=== PATIENT | female | born 1980 | race Caucasian/White ===

== ENCOUNTER 2018-08-20 13:59 | Emergency (ER) | payer MEDICAID ==
--- NOTE | 2018-08-20 14:08 | ER Report ---
History and Physical Time Seen By MD: 14:08 HPI/ROS CHIEF COMPLAINT: Seizure HISTORY OF PRESENT ILLNESS: 38-year-old female patient presents to emergency room with complaint of seizure. Patient states that she was sitting on a couch and then she did not recall anything after that. Her significant other states that she started making noise and looked over and she was arching her back and bleeding from her mouth. He states this lasted approximately a minute to minute half. Patient states that she was not herself for the next several minutes. After that they decided they want him to the emergency room. Patient states that she does have some tenderness to her tongue. She denies any headache, neck pain, headache. Patient states she has never had a seizure before. Patient does have a history of MS. REVIEW OF SYSTEMS: Respiratory: No cough, no dyspnea. Cardiovascular: No chest pain, no palpitations. Gastrointestinal: No vomiting, no abdominal pain. Musculoskeletal: No back pain. Past Medical/Surgical History Patient has a past medical history of MS. Patient denies any surgical history. Reviewed Nurses Notes: Yes Constitutional Vital Sign - Last 24 Hours 08/20/18 08/20/18 08/20/18 08/20/18 14:05 14:07 14:30 15:00 Temp 98.3 Pulse 114 108 106 Resp 20 B/P (MAP) 126/84 (98) 126/84 102/78 (86) 112/72 (85) Pulse Ox 92 93 94 O2 Delivery Room Air 08/20/18 08/20/18 15:30 16:30 Pulse 114 98 B/P (MAP) 121/66 (84) Pulse Ox 92 94 Physical Exam General Appearance: The patient is alert, has no immediate need for airway protection and no current signs of toxicity. ENT: Tympanic membranes are pearly-dahl, auditory canals are patent, mucous membranes are moist. Patient does have bite baker to the right side of her tongue. Respiratory: Chest is non tender, lungs are clear to auscultation. Cardiac: regular rate and rhythm Gastrointestinal: Abdomen is soft and non tender, no masses, bowel sounds normal. Musculoskeletal: Neck: Neck is supple and non tender. Extremities have full range of motion and are non tender. Skin: No rashes or lesions. Neuro: She is alert and oriented 3, patient was not able to identify who the president was. Cranial nerves II through XII grossly intact. DIFFERENTIAL DIAGNOSIS: After history and physical exam differential diagnosis was considered for a seizure including but not limited to electrolyte abnormality, alcohol withdrawal, medication noncompliance, head injury, and breakthrough seizure. Medical Decision Making Data Points Result Diagram: 08/20/18 1437 08/20/18 1437 Laboratory Hematology Test 08/20/18 14:37 08/20/18 15:50 Red Blood Count 4.89 M/uL (4.17-5.56) Mean Corpuscular Volume 90.2 fL (80.0-96.0) Mean Corpuscular Hemoglobin 29.6 pg (26.0-33.0) Mean Corpuscular Hemoglobin Concent 32.9 g/dL (32.0-36.0) Red Cell Distribution Width 15.0 % (11.5-14.5) Mean Platelet Volume 8.1 fL (7.2-11.1) Neutrophils (%) (Auto) 64.4 % (39.4-72.5) Lymphocytes (%) (Auto) 24.6 % (17.6-49.6) Monocytes (%) (Auto) 7.8 % (4.1-12.4) Eosinophils (%) (Auto) 2.8 % (0.4-6.7) Basophils (%) (Auto) 0.4 % (0.3-1.4) Nucleated RBC Relative Count (auto) 0.2 /100WBC Neutrophils # (Auto) 10.9 K/uL (2.0-7.4) Lymphocytes # (Auto) 4.2 K/uL (1.3-3.6) Monocytes # (Auto) 1.3 K/uL (0.3-1.0) Eosinophils # (Auto) 0.5 K/uL (0.0-0.5) Basophils # (Auto) 0.1 K/uL (0.0-0.1) Nucleated RBC Absolute Count (auto) 0.04 K/uL Sodium Level 138 mmol/L (137-145) Potassium Level 3.5 mmol/L (3.5-5.0) Chloride Level 104 mmol/L (98-107) Carbon Dioxide Level 20 mmol/L (22-31) Blood Urea Nitrogen 12 mg/dl (7-18) Creatinine 0.80 mg/dl (0.52-1.04) Glomerular Filtration Rate Calc > 60.0 Whole Blood Glucose 94 mg/DL (75-110) Random Glucose 89 mg/dl (75-110) Calcium Level 10.2 mg/dl (8.4-10.2) Magnesium Level 2.1 mg/dl (1.7-2.2) Total Bilirubin 0.4 mg/dl (0.2-1.3) Aspartate Amino Transf (AST/SGOT) 17 U/L (0-35) Alanine Aminotransferase (ALT/SGPT) 20 U/L (0-56) Alkaline Phosphatase 89 U/L (0-126) Total Protein 7.2 g/dl (6.3-8.2) Albumin 4.5 g/dl (3.5-5.0) Human Chorionic Gonadotropin, Qual Negative (NEGATIVE) Urine Color Yellow Urine Clarity Cloudy Urine pH 6.0 pH (4.8-9.5) Urine Specific [place] 1.012 Urine Protein Negative mg/dL (NEGATIVE) Urine Glucose (UA) Negative mg/dL (NEGATIVE) Urine Ketones Negative mg/dL (NEGATIVE) Urine Blood Negative (NEGATIVE) Urine Nitrite Negative (NEGATIVE) Urine Bilirubin Negative (NEGATIVE) Urine Urobilinogen Negative mg/dL (0.2-1.9) Urine Leukocyte Esterase Negative (NEGATIVE) Urine RBC 2 /HPF (0-2/HPF) Urine WBC 7 /HPF (0-5/HPF) Urine Squamous Epithelial Cells Many /LPF (</=FEW) Urine Bacteria Few /HPF (NONE-FEW) Urine Mucus None /HPF (NONE-FEW) Urine Opiates Screen Negative Urine Barbiturates Screen Negative Ur Tricyclic Antidepressants Screen Negative Urine Phencyclidine Screen Negative Urine Amphetamines Screen Negative Urine Benzodiazepines Screen Negative Urine Cocaine Screen Negative Urine Cannabinoids Screen Negative Chemistry Test 08/20/18 14:37 08/20/18 15:50 White Blood Count 17.0 k/uL (4.5-11.0) Red Blood Count 4.89 M/uL (4.17-5.56) Hemoglobin 14.5 g/dL (12.0-16.0) Hematocrit 44.1 % (34.0-47.0) Mean Corpuscular Volume 90.2 fL (80.0-96.0) Mean Corpuscular Hemoglobin 29.6 pg (26.0-33.0) Mean Corpuscular Hemoglobin Concent 32.9 g/dL (32.0-36.0) Red Cell Distribution Width 15.0 % (11.5-14.5) Platelet Count 232 K/uL (150-450) Mean Platelet Volume 8.1 fL (7.2-11.1) Neutrophils (%) (Auto) 64.4 % (39.4-72.5) Lymphocytes (%) (Auto) 24.6 % (17.6-49.6) Monocytes (%) (Auto) 7.8 % (4.1-12.4) Eosinophils (%) (Auto) 2.8 % (0.4-6.7) Basophils (%) (Auto) 0.4 % (0.3-1.4) Nucleated RBC Relative Count (auto) 0.2 /100WBC Neutrophils # (Auto) 10.9 K/uL (2.0-7.4) Lymphocytes # (Auto) 4.2 K/uL (1.3-3.6) Monocytes # (Auto) 1.3 K/uL (0.3-1.0) Eosinophils # (Auto) 0.5 K/uL (0.0-0.5) Basophils # (Auto) 0.1 K/uL (0.0-0.1) Nucleated RBC Absolute Count (auto) 0.04 K/uL Glomerular Filtration Rate Calc > 60.0 Whole Blood Glucose 94 mg/DL (75-110) Calcium Level 10.2 mg/dl (8.4-10.2) Magnesium Level 2.1 mg/dl (1.7-2.2) Total Bilirubin 0.4 mg/dl (0.2-1.3) Aspartate Amino Transf (AST/SGOT) 17 U/L (0-35) Alanine Aminotransferase (ALT/SGPT) 20 U/L (0-56) Alkaline Phosphatase 89 U/L (0-126) Total Protein 7.2 g/dl (6.3-8.2) Albumin 4.5 g/dl (3.5-5.0) Human Chorionic Gonadotropin, Qual Negative (NEGATIVE) Urine Color Yellow Urine Clarity Cloudy Urine pH 6.0 pH (4.8-9.5) Urine Specific [place] 1.012 Urine Protein Negative mg/dL (NEGATIVE) Urine Glucose (UA) Negative mg/dL (NEGATIVE) Urine Ketones Negative mg/dL (NEGATIVE) Urine Blood Negative (NEGATIVE) Urine Nitrite Negative (NEGATIVE) Urine Bilirubin Negative (NEGATIVE) Urine Urobilinogen Negative mg/dL (0.2-1.9) Urine Leukocyte Esterase Negative (NEGATIVE) Urine RBC 2 /HPF (0-2/HPF) Urine WBC 7 /HPF (0-5/HPF) Urine Squamous Epithelial Cells Many /LPF (</=FEW) Urine Bacteria Few /HPF (NONE-FEW) Urine Mucus None /HPF (NONE-FEW) Urine Opiates Screen Negative Urine Barbiturates Screen Negative Ur Tricyclic Antidepressants Screen Negative Urine Phencyclidine Screen Negative Urine Amphetamines Screen Negative Urine Benzodiazepines Screen Negative Urine Cocaine Screen Negative Urine Cannabinoids Screen Negative Toxicology Test 08/20/18 15:50 Urine Opiates Screen Negative Urine Barbiturates Screen Negative Ur Tricyclic Antidepressants Screen Negative Urine Phencyclidine Screen Negative Urine Amphetamines Screen Negative Urine Benzodiazepines Screen Negative Urine Cocaine Screen Negative Urine Cannabinoids Screen Negative Urinalysis Test 08/20/18 15:50 Urine Color Yellow Urine Clarity Cloudy Urine pH 6.0 pH (4.8-9.5) Urine Specific [place] 1.012 Urine Protein Negative mg/dL (NEGATIVE) Urine Glucose (UA) Negative mg/dL (NEGATIVE) Urine Ketones Negative mg/dL (NEGATIVE) Urine Blood Negative (NEGATIVE) Urine Nitrite Negative (NEGATIVE) Urine Bilirubin Negative (NEGATIVE) Urine Urobilinogen Negative mg/dL (0.2-1.9) Urine Leukocyte Esterase Negative (NEGATIVE) Urine RBC 2 /HPF (0-2/HPF) Urine WBC 7 /HPF (0-5/HPF) Urine Squamous Epithelial Cells Many /LPF (</=FEW) Urine Bacteria Few /HPF (NONE-FEW) Urine Mucus None /HPF (NONE-FEW) EKG/Imaging Imaging CT OF THE BRAIN WITHOUT CONTRAST HISTORY: Seizure PROCEDURE: 3.0 mm contiguous axial sections were performed through the brain. Sagittal and coronal reformats were submitted. COMPARISON: None FINDINGS: BRAIN: Brain and intracranial structures: There is no mass lesion, hemorrhage or acute infarct. Scattered areas of patchy hypointensity likely reflect chronic ischemic change. Mild diffuse cerebral volume loss. Orbits (included portions): Normal. Scalp: Normal. Skull: Normal. Paranasal sinuses and mastoid air cells (included portions): Clear IMPRESSION: No evidence of acute intracranial abnormality by CT. One of the following dose optimization techniques was utilized in the performance of this exam: Automated exposure control; adjustment of the mA and/or kV according to the patient's size; or use of an iterative reconst ruction technique. Specific details can be referenced in the facility's radiology CT exam operational policy. Report Dictated By: Petrona Juarez MD at 08/20/2018 3:29 PM Report E-Signed By: Petrona Juarez MD at 08/20/2018 3:48 PM ED Course/Re-evaluation ED Course Patient was admitted to exam room, history and physical were obtained. Differential diagnoses were considered. On examination lungs are clear, heart is regular, abdomen soft nontender. Patient did have a hard time remembering Toni Rae was the president. Patient was able to identify where she was, who she was and what the date was. Patient did have bite baker to both sides of her tongue. An IV was started, a CBC, CMP, magnesium were drawn. The results were indicative of seizure with elevated white count, 17,000, low CO2. CT scan of the head was done which was negative. I discussed the case with Dr. breen, neurologist at [facility]. He was recommendation to hold off on medication at this time. Since patient has been seen by Dr. Abel, neurologist in [facility], it was recommended that she follow-up with her. Patient is to avoid standing water, she is to avoid heights. Patient does not drive. When I discussed the patient she states she did not drive anyways. The patient is to return to the emergency room if she has any subsequent seizures. Discusses p atient and her significant other and they verbalized understanding and agreement with plan. Decision to Disposition Date: Aug 20, 2018 Decision to Disposition Time: 16:07 Depart Departure Latest Vital Signs Vital Signs Date Time Temp Pulse Resp B/P (MAP) Pulse Ox O2 Delivery O2 Flow Rate FiO2 08/20/18 16:30 98 94 08/20/18 15:30 121/66 (84) 08/20/18 14:07 98.3 20 Room Air Impression: Primary Impression: Seizure Condition: Improved Disposition: HOME OR SELF-CARE Patient Instructions: New-Onset Seizure in Adults (ED) Additional Instructions: Avoid standing water, no heights. Follow up with Dr. Abel, call tomorrow to make an appointment. Return to the ER if you have any more seizures. No Driving, even though you don't drive now. Continue with current medications. ZACK DOE Aug 20, 2018 14:08
[2018-08-20] MEDS ORDERED: NS(*) 0.9% 1000 ML BAG 1,000 ML IV ONE (14:18)
[2018-08-20 14:48] LABS: PLATELET COUNT, AUTOMATED 232 K/uL (150-450)
[2018-08-20 15:30] VITALS: BP 121/66
--- NOTE | 2018-08-20 15:52 | RADIOLOGY IMAGING REPORT ---
FACILITY: [facility] PATIENT NAME: Winston Castro : 1980 MR: [id number] V: [id number] EXAM DATE: [id number] ORDERING PHYSICIAN: ZACK DOE TECHNOLOGIST: Location: [facility] [place] Patient: Winston Castro : 1980 Visit/Account:[id number] Date of Sevice: 08/20/2018 CT OF THE BRAIN WITHOUT CONTRAST HISTORY: Seizure PROCEDURE: 3.0 mm contiguous axial sections were performed through the brain. Sagittal and coronal r eformats were submitted. COMPARISON: None FINDINGS: BRAIN: Brain and intracranial structures: There is no mass lesion, hemorrhage or acute infarct. Scattered ar eas of patchy hypointensity likely reflect chronic ischemic change. Mild diffuse cerebral volume loss . Orbits (included portions): Normal. Scalp: Normal. Skull: Normal. Paranasal sinuses and mastoid air cells (included portions): Clear IMPRESSION: No evidence of acute intracranial abnormality by CT. One of the following dose optimization techniques was utilized in the performance of this exam: Autom ated exposure control; adjustment of the mA and/or kV according to the patient's size; or use of an i terative reconstruction technique. Specific details can be referenced in the facility's radiology C T exam operational policy. Report Dictated By: Petrona Juarez MD at 08/20/2018 3:29 PM Report E-Signed By: Petrona Juarez MD at 08/20/2018 3:48 PM [id number]
[2018-08-20] MEDS ORDERED: MAG HYD/AL HYD/SIMETH 30ML UDC MM ONE (16:10)
[2018-08-20] MEDS ORDERED: LIDOCAINE 2% VISC SLN 15ML UDC MM ONE (16:10)
== END 2018-08-20 16:25 | disposition home or self-care (01) ==
LOC: ER 14:32
DX: R56.9 Unspecified convulsions (principal); R79.89 Other specified abnormal findings of blood chemistry
CPT/HCPCS: 36415; 36416; 70450; 80305; 81001; 82948; 83735; 84703; 85025; 87088; 96360; 96361; 99284; J7030; 82040; 82247; 82310; 82374; 82435; 82565; 82947; 84075; 84132; 84155; 84295; 84450; 84460; 84520